=== PATIENT | female | born 1985 | race Caucasian/White ===

== ENCOUNTER 2017-03-17 11:01 | Emergency (ER) | payer MEDICAID ==
[~2017-03-17] VITALS: Ht 165.1 cm; Wt 83.2 kg
[2017-03-17] MEDS ORDERED: SODIUM CHLORIDE 0.9% 1,000 ML IV ONE (11:16)
[2017-03-17] MEDS ORDERED: SODIUM CHLORIDE 0.9% 1,000ML IVBOLUS ONE ×2 (11:30→12:30)
[2017-03-17] MEDS ORDERED: ONDANSETRON 2MG/ML, 2ML IVPush ONE (11:30)
[2017-03-17 11:52] LABS: HEMATOCRIT 42.7 % (34.6-47.8); HEMOGLOBIN 14.5 g/dL (11.7-16.4); WHITE BLOOD COUNT 12.4 x10^3/uL (3.4-10)
[2017-03-17 12:01] LABS: BLOOD UREA NITROGEN 7 mg/dL (7-18)
[2017-03-17] MEDS ORDERED: MORPHINE SULFATE 4 MG/ML, 1ML ONE ×2 (12:48→14:24)
[2017-03-17] MEDS ORDERED: ONDANSETRON 2MG/ML, 2ML ONE (12:48)
[2017-03-17] MEDS ORDERED: AMPICILLIN/SULBACTAM 3 GM in SODIUM CHLORIDE 0.9% 100 ML IV ONE (13:00)
[2017-03-17] MEDS: MORPHINE SULFATE 4 MG/ML, 1ML IVPush PRN ×2 (13:00→14:27)
[2017-03-17] MEDS ORDERED: DIPH,PERTUSS(ACELL),TET VAC/PF 0.5 ML IM-VACC ONE ×2 (14:00→14:10)
[2017-03-17 15:44] VITALS: BP 108/70
== END 2017-03-17 15:46 | disposition home or self-care (01) ==
LOC: ED 12:43
DX: L03.115 Cellulitis of right lower limb (principal); J45.909 Unspecified asthma, uncomplicated; F17.200 Nicotine dependence, unspecified, uncomplicated; Z88.1 Allergy status to other antibiotic agents
CPT/HCPCS: 36415; 80048; 82040; 83605; 85025; 87040; 90471; 90715; 96365; 96366; 96375; 96376; 99285; J0295; J2405; J7030

== ENCOUNTER 2017-03-19 13:21 | Inpatient (IN) | payer MEDICAID ==
[~2017-03-19] VITALS: Ht 165.1 cm; Wt 83.9 kg
[2017-03-19] MEDS ORDERED: SODIUM CHLORIDE FLUSH 10ML SYR IVF ONE (15:00)
[2017-03-19] MEDS ORDERED: CEFTAROLINE 600 MG in SODIUM CHLORIDE 0.9% 100 ML IV ONE (15:00)
[2017-03-19] MEDS ORDERED: MORPHINE SULFATE 4 MG/ML, 1ML ONE (15:09)
[2017-03-19] MEDS ORDERED: CEPH-368 PO (15:26)
[2017-03-19] MEDS ORDERED: MORPHINE SULFATE 4 MG/ML, 1ML IVPush PRN (15:30)
[2017-03-19 15:33] LABS: HEMATOCRIT 44.7 % (34.6-47.8); HEMOGLOBIN 15.1 g/dL (11.7-16.4); WHITE BLOOD COUNT 14.1 x10^3/uL (3.4-10)
[2017-03-19 15:43] LABS: BLOOD UREA NITROGEN 7 mg/dL (7-18)
[2017-03-19] MEDS ORDERED: GADOBUTROL 7.5 MMOL/7.5 ML PFS ONE (15:59)
[2017-03-19] MEDS ORDERED: ALBU2.5V11 NEB (16:52)
[2017-03-19] MEDS ORDERED: ALBU0.63 NEB (16:52)
[2017-03-19] MEDS ORDERED: ALBU18HF INH (16:53)
[2017-03-19] MEDS ORDERED: CEFTAROLINE 600 MG in SODIUM CHLORIDE 0.9% 100 ML IV SCH (17:00)
[2017-03-19] MEDS ORDERED: NICOTINE 14MG/24 HR PATCH.TD24 TD SCH (17:00)
[2017-03-19] MEDS ORDERED: ACETAMINOPHEN 325 MG TABLET PO PRN (17:00)
[2017-03-19 17:35] VITALS: BP 105/66
[2017-03-19] MEDS ORDERED: KETOROLAC 30 MG/1 ML IM PRN (18:30)
[2017-03-19] MEDS: KETOROLAC 30 MG/1 ML IV PRN (19:00)
[2017-03-19] MEDS: OXYcodone IR 5MG TABLET PO PRN (19:00)
[2017-03-19] MEDS: ENOXAPARIN 40 MG/0.4 ML SQ SCH (19:46)
[2017-03-19 20:32] VITALS: BP 114/70
[2017-03-20] MEDS: OXYcodone IR 5MG TABLET PO PRN ×4 (01:10→22:23)
[2017-03-20] MEDS: KETOROLAC 30 MG/1 ML IV PRN ×4 (01:10→20:44)
[2017-03-20] MEDS: ONDANSETRON ODT 4 MG PO PRN ×5 (01:15→22:23)
[2017-03-20] MEDS: CEFTAROLINE 600 MG in SODIUM CHLORIDE 0.9% 100 ML IV SCH ×2 (03:00→15:11)
[2017-03-20 03:03] VITALS: BP 109/64
[2017-03-20 04:47] LABS: HEMATOCRIT 41.6 % (34.6-47.8); HEMOGLOBIN 13.9 g/dL (11.7-16.4)
[2017-03-20 04:52] LABS: BLOOD UREA NITROGEN 7 mg/dL (7-18)
[2017-03-20] MEDS: SENNA/DOCUSATE TABLET PO SCH (07:54)
[2017-03-20 07:58] VITALS: BP 114/73
[2017-03-20 14:30] VITALS: BP 111/56
[2017-03-20] MEDS ORDERED: NICOTINE 21 MG/24 HR PATCH.TD24 TD ONE (18:30)
[2017-03-20] MEDS ORDERED: POTASSIUM CHLORIDE 20 MEQ TAB.ER.PRT PO ONE (18:30)
[2017-03-20] MEDS: ENOXAPARIN 40 MG/0.4 ML SQ SCH (19:33)
[2017-03-20 20:09] VITALS: BP 106/63
[2017-03-21 03:11] VITALS: BP 102/70
[2017-03-21] MEDS: CEFTAROLINE 600 MG in SODIUM CHLORIDE 0.9% 100 ML IV SCH (03:11)
[2017-03-21] MEDS: KETOROLAC 30 MG/1 ML IV PRN ×2 (03:11→10:17)
[2017-03-21] MEDS: ONDANSETRON ODT 4 MG PO PRN ×2 (04:57→10:57)
[2017-03-21] MEDS: OXYcodone IR 5MG TABLET PO PRN ×2 (04:57→10:54)
[2017-03-21] MEDS ORDERED: LACT1CAP11 PO (07:10)
[2017-03-21] MEDS ORDERED: OXYC5TAB3 PO (07:10)
[2017-03-21] MEDS ORDERED: CEFD300C37 PO (07:10)
[2017-03-21] MEDS: SENNA/DOCUSATE TABLET PO SCH (07:58)
[2017-03-21] MEDS ORDERED: NICOTINE 21 MG/24 HR PATCH.TD24 TD SCH (09:00)
[2017-03-21 10:17] VITALS: BP 104/71
[2017-03-21 11:20] VITALS: BP 112/75
== END 2017-03-21 12:00 | disposition home or self-care (01) | DRG 872 ==
LOC: ED 15:53 → EDIP 15:54 → ED 16:22 → 4NOR 17:15 → DCLOUNGE 03-21 11:42
PROVIDERS: ADMIT Internal Medicine
DX: A41.9 Sepsis, unspecified organism (principal); E87.1 Hypo-osmolality and hyponatremia; L03.115 Cellulitis of right lower limb; F12.90 Cannabis use, unspecified, uncomplicated; F17.200 Nicotine dependence, unspecified, uncomplicated; J45.909 Unspecified asthma, uncomplicated
CPT/HCPCS: 36415; 80048; 82040; 83605; 85025; 87040; 96365; 96366; 96375; A9585; J0712; J1650; J1885; Q0162